=== PATIENT | female | born 1980 | race African-American/Black ===

== ENCOUNTER 2022-06-09 01:01 | Emergency (ER) | payer BC ==
[~2022-06-09] VITALS: Ht 177.8 cm; Wt 74.4 kg
[2022-06-09] MEDS ORDERED: ASPIRIN 81 MG TAB.CHEW PO ONE (01:30)
[2022-06-09] MEDS ORDERED: DICYCLOMINE HCL LIQ 10 MG/5 ML UDC ONE (01:40)
[2022-06-09] MEDS ORDERED: ASPIRIN 81 MG TAB.CHEW ONE (01:40)
[2022-06-09] MEDS ORDERED: HEPARIN SODIUM,PORCINE/PF 100 UNIT/ML, 5ML SYR ONE (01:41)
[2022-06-09] MEDS ORDERED: DICYCLOMINE HCL LIQ 10 MG/5 ML UDC PO ONE (01:45)
--- NOTE | 2022-06-09 01:45 | NUR ---
XRAY at bedside
--- NOTE | 2022-06-09 01:49 | NUR ---
Per Dr. Gonzalez given order to use [facility] cath to draw labs.
--- NOTE | 2022-06-09 01:53 | NUR ---
Heparin [address] Gonzalez order via [id number].
[2022-06-09 01:58] LABS: HEMATOCRIT 32.3 % (31.2-41.9); MEAN CORPUSCULAR HEMOGLOBIN 21.4 uug (24.7-32.8); MEAN CORPUSCULAR VOLUME 67.7 fL (75.5-95.3); PLATELET COUNT (AUTO) 236 K/uL (179-408)
[2022-06-09] MEDS ORDERED: HEPARIN SODIUM,PORCINE/PF 100 UNIT/ML, 5ML SYR XX ONE (02:00)
[2022-06-09 02:37] LABS: CARBON DIOXIDE 28 mmol/L (21-32); CHLORIDE 100 mmol/L (98-107); CREATININE 0.9 mg/dL (0.6-1.3); GLUCOSE 99 mg/dL (74-106); POTASSIUM 3.8 mmol/L (3.5-5.1); UREA NITROGEN, BLOOD 13 mg/dL (7-18)
[2022-06-09 02:50] LABS: ALANINE AMINOTRANSFERASE 124 U/L (14-59); ALKALINE PHOSPHATASE 267 U/L (50-136); ASPARTATE AMINOTRANSFERASE 139 U/L (15-37); BILIRUBIN,DIRECT 0.2 mg/dL (0.0-0.2); BILIRUBIN,TOTAL 0.4 mg/dL (0.2-1.0); TOTAL PROTEIN, SERUM 8.3 g/dL (6.4-8.2)
[2022-06-09] MEDS ORDERED: DICY20TA11 PO (03:29)
--- NOTE | 2022-06-09 03:40 | NUR ---
Patient discharged to home in stable condition with . A/O x4. NAD noted. Ambulatory with a steady gait. Written and verbal after care instructions given. Patient verbalizes understanding of instructions. Stressed follow up or return to ER for worsening s/s.
[2022-06-09 03:42] VITALS: BP 129/75
== END 2022-06-09 03:40 | disposition home or self-care (01) ==
LOC: ER 01:07
DX: R07.89 Other chest pain (principal); K22.4 Dyskinesia of esophagus; C50.911 Malignant neoplasm of unspecified site of right female breast; Z79.899 Other long term (current) drug therapy; Z90.11 Acquired absence of right breast and nipple; R03.0 Elevated blood-pressure reading, without diagnosis of hypertension
CPT/HCPCS: 99285; 96374; 71045; 80076; 80048; 83880; 85025; 84484; 36415; 93005; J1642; A4663

== ENCOUNTER 2022-06-30 16:49 | Emergency (ER) | payer BC ==
[~2022-06-30] VITALS: Ht 175.3 cm; Wt 74.8 kg
[~2022-06-30 16:49] MED LIST: DICY20TA11 PO
--- NOTE | 2022-06-30 17:55 | NUR ---
Pt to triage via w/c, BIB with c/o abd pain. Pt was triaged and brought back to ER waiting room in w/c. The ER beds available at this time.
[2022-06-30] MEDS ORDERED: ONDANSETRON 4 MG/2 ML VIAL IV ONE (21:00)
[2022-06-30] MEDS ORDERED: MORPHINE SULFATE 4 MG/1 ML DISP.SYRIN IV ONE (21:00)
[2022-06-30] MEDS ORDERED: MORPHINE SULFATE 4 MG/1 ML DISP.SYRIN ONE (21:31)
[2022-06-30] MEDS ORDERED: ONDANSETRON 4 MG/2 ML VIAL ONE (21:31)
[2022-06-30 22:08] LABS: *BLOOD, URINE NEGATIVE (NEGATIVE); *CLARITY,URINE CLEAR (CLEAR); *COLOR,URINE YELLOW (YELLOW); *KETONES,URINE TRACE (NEGATIVE); LEUKOCYTE ESTERASE ,URINE NEGATIVE (NEGATIVE); NITRITE, URINE NEGATIVE (NEGATIVE); PH,URINE 5.5 (5.0-8.0); UGLUCOSE NEGATIVE (NEGATIVE)
[2022-06-30 22:09] LABS: *BILIRUBIN,URIN 2+ (NEGATIVE)
[2022-06-30 22:46] LABS: CARBON DIOXIDE 24 mmol/L (21-32); CHLORIDE 94 mmol/L (98-107); CREATININE 0.9 mg/dL (0.6-1.3); GLUCOSE 83 mg/dL (74-106); HEMATOCRIT 32.3 % (31.2-41.9); MEAN CORPUSCULAR HEMOGLOBIN 21.2 uug (24.7-32.8); MEAN CORPUSCULAR VOLUME 66.2 fL (75.5-95.3); PLATELET COUNT (AUTO) 300 K/uL (179-408); POTASSIUM 4.5 mmol/L (3.5-5.1); UREA NITROGEN, BLOOD 16 mg/dL (7-18)
[2022-06-30 22:54] LABS: ALANINE AMINOTRANSFERASE 156 U/L (14-59); ALKALINE PHOSPHATASE 581 U/L (50-136); ASPARTATE AMINOTRANSFERASE 254 U/L (15-37); BILIRUBIN,DIRECT 0.7 mg/dL (0.0-0.2); BILIRUBIN,TOTAL 1.1 mg/dL (0.2-1.0); LIPASE 36 U/L (73-393); TOTAL PROTEIN, SERUM 8.1 g/dL (6.4-8.2)
[2022-06-30] MEDS ORDERED: IOHEXOL 300MG/ML 100 ML INFUS..BTL ONE (23:43)
[2022-06-30] MEDS ORDERED: SWABABLE VALVE TRANSFER SET EA MC ONE (23:43)
[2022-06-30] MEDS ORDERED: IV NORMAL SALINE 250 ML IV ONE (23:43)
--- NOTE | 2022-07-01 00:16 | NUR ---
Ct in progress at this time.
[2022-07-01] MEDS ORDERED: IV NS 1000 ML 1,000 ML IV ONE (01:15)
[2022-07-01] MEDS ORDERED: OXYC5TAB3 PO (02:12)
[2022-07-01] MEDS ORDERED: DULO30CA2 PO (02:12)
[2022-07-01] MEDS ORDERED: PREG50CA PO (02:12)
--- NOTE | 2022-07-01 03:23 | NUR ---
CALLED [facility] AND SPOKE TO CHARGE NURSE FROM THE ER WHO STATES THEY ARE UNABLE TO ACCEPT PATIENT DUE TO BEING AT CAPACITY.
[2022-07-01] MEDS ORDERED: MORP15TA PO (03:52)
[2022-07-01] MEDS ORDERED: HEPARIN SODIUM,PORCINE/PF 100 UNIT/ML, 5ML SYR XX ONE ×2 (04:15→04:30)
[2022-07-01] MEDS ORDERED: HEPARIN SODIUM,PORCINE/PF 100 UNIT/ML, 5ML SYR ONE (04:18)
[2022-07-01 04:31] VITALS: BP 118/80
== END 2022-07-01 04:32 | disposition home or self-care (01) ==
LOC: ER 16:49
DX: R10.12 Left upper quadrant pain (principal); C50.911 Malignant neoplasm of unspecified site of right female breast; C78.7 Secondary malignant neoplasm of liver and intrahepatic bile duct; C79.71 Secondary malignant neoplasm of right adrenal gland; Z20.822 Contact with and (suspected) exposure to COVID-19; Z90.11 Acquired absence of right breast and nipple; E87.1 Hypo-osmolality and hyponatremia; R74.01 Elevation of levels of liver transaminase levels; R00.0 Tachycardia, unspecified
CPT/HCPCS: 99285; 74177; 96374; 96375 ×2; 80076; 80048; 81003; 83690; 85025; 84484; 84702; 36415; 93005; 87040; 87426; J2405; Q9967; J2270; J1642; J7040; A4663